=== PATIENT | male | born 1955 | race Caucasian/White ===

== ENCOUNTER → 2019-03-24 | Outpatient (CLI) | payer OTHER ==
--- NOTE | 2019-03-24 14:45 | XR ---
Right knee and right femur HISTORY: Trauma, pain 3 views of the right knee, 2 views of the right femur on 4 images No comparisons Mild marginal spurring present in the medial compartment of the knee. Alignment and bone mineralizati on are maintained. There are vascular calcifications in the soft tissues along the distribution of th e superficial femoral and popliteal arteries. Right femur shows intact appearance. IMPRESSION: No fracture or dislocation.
== END | disposition home or self-care (01) ==
LOC: RADXRMAIN 14:20
PROVIDERS: ATTEND Emergency Medicine
DX: S76.311A Strain of muscle, fascia and tendon of the posterior muscle group at thigh level, right thigh, initial encounter (principal)